=== PATIENT | female | born 1990 | race Two or more races ===

== ENCOUNTER 2017-03-08 21:02 | Observation (INO) | payer OTHER ==
[2017-03-08] MEDS ORDERED: Sodium Chloride 0.9% 1,000 ML IV STA (21:39)
[2017-03-08 22:02] LABS: BASO % 0.2 % (0.0-2.0); HEMATOCRIT 40.4 % (34.0-47.0); LYMPH # 0.3 K/uL (1.0-4.3); LYMPH % 4.2 % (20.0-40.0); MEAN CELL VOLUME 87.2 fl (81.0-99.0); MEAN CORPUSCULAR HEMOGLOBIN 29.5 pg (27.0-31.0); MEAN CORPUSCULAR HGB CONC 33.8 g/dL (33.0-37.0); MEAN PLATELET VOLUME 7.6 fl (7.2-11.7); MONO # 0.1 K/uL (0.0-0.8); MONO % 1.4 % (0.0-10.0); NEUT # 7.4 K/uL (1.8-7.0); NEUT % 94.2 % (50.0-75.0); NRBC % 0.1 % (0.0-0.0); PLATELET COUNT 225 K/uL (130-400); RED CELL DISTRIBUTION WIDTH 14.7 % (11.5-14.5); WHITE BLOOD COUNT 7.9 K/uL (4.8-10.8)
--- NOTE | 2017-03-08 22:46 | ED PDOC ---
HPI: Neurologic - General Time Seen by Provider: 03/08/17 21:19 Chief Complaint (Nursing): Headache Chief Complaint (Provider): tremors Source: patient - History of Present Illness Timing/Duration: increasing, waxing and waning (for about 4 weeks) Associated Symptoms: fatigue, muscle spasms, paresthesia, weakness Allergies/Adverse Reactions: Allergies No Known Allergies Allergy (Verified 03/08/17 21:09) Home Medications: Ambulatory Orders Albuterol Sulfate [Proair Hfa] 2 puff INH Q6 PRN 03/08/17 Azithromycin [Zithromax] 500 mg PO DAILY 03/08/17 Cetirizine HCl [Zyrtec] 10 mg PO DAILY 03/08/17 Norgestimate-Ethinyl Estradiol [Trinessa Tablet] 1 tab PO DAILY 03/08/17 Prednisone 50 mg PO DAILY 03/08/17 traZODone [Desyrel] 50 mg PO DAILY PRN 03/08/17 Sertraline [Zoloft] 50 mg PO DAILY tab 03/10/17 clonazePAM [Klonopin] 0.5 mg PO Q12 #0 tab 03/10/17 Additional Complaint(s): Severe tremors for about 4 weeks. Denies feeling anxious. She reports that she feels like she just can't control her arms and legs. For last 8 months, pt on medication for anxiety and depression. Initially was given celexa but after a week, started to get these similar symptoms of tremors , seen in [facility] ER and it was dc'd and pt prescribed short course xanax. In september, psychiatrist started pt on zoloft 25mg and ativan. In January she was on Zoloft 50mg and Ativan 0.5 In February pt was increased to Zoloft 100mg and ativan was discontinued. This is when symptoms started to appear again. Worsening until today and now presenting to ER. Denies alcohol or drugs. Past Medical History Reviewed: Historical Data, Nursing Documentation, Vital Signs Vital Signs: Last Vital Signs Temp 99.2 F 03/08/17 21:09 Pulse 115 H 03/08/17 21:09 Resp 16 03/08/17 21:09 BP 159/89 H 03/08/17 21:09 Pulse Ox 99 03/08/17 21:09 - Medical History PMH: Anxiety, Depression Denies: Diabetes (Family history), Hepatitis, HIV, HTN, Seizures, Sexually Transmitted Disease - Surgical History Other surgeries: Sinus surgery - Family History Family History: States: No Known Family Hx - Social History Current smoker - smoking cessation education provided: No Alcohol: Occasional Drugs: Denies - Immunization History Hx Tetanus Toxoid Vaccination: No Hx Influenza Vaccination: Yes Hx Pneumococcal Vaccination: No - Home Medications Home Medications: Ambulatory Orders Medication Instructions Recorded Albuterol Sulfate [Proair Hfa] 2 puff INH Q6 PRN 03/08/17 Azithromycin [Zithromax] 500 mg PO DAILY 03/08/17 Cetirizine HCl [Zyrtec] 10 mg PO DAILY 03/08/17 Norgestimate-Ethinyl Estradiol 1 tab PO DAILY 03/08/17 [Trinessa Tablet] Prednisone 50 mg PO DAILY 03/08/17 traZODone [Desyrel] 50 mg PO DAILY PRN 03/08/17 Sertraline [Zoloft] 50 mg PO DAILY tab 03/10/17 clonazePAM [Klonopin] 0.5 mg PO Q12 #0 tab 03/10/17 - Allergies Allergies/Adverse Reactions: Allergies Allergy/AdvReac Type Severity Reaction Status Date / Time No Known Allergies Allergy Verified 03/08/17 21:09 Review of Systems ROS Statement: Except As Marked, All Systems Reviewed And Found Negative (and as per HPI) Constitutional: Positive for: Sweats, Weakness Respiratory: Positive for: Shortness of Breath Musculoskeletal: Positive for: Neck Pain, Back Pain Neurological: Positive for: Incoordination, Dizziness. Negative for: Weakness, Numbness, Confusion Psych: Positive for: Anxiety, Depression. Negative for: Psychosis, Suicidal ideation, Withdrawal Physical Exam - Reviewed Nursing Documentation Reviewed: Yes Vital Signs Reviewed: Yes - Physical Exam Appears: Positive for: In Acute Distress (tearful) Head Exam: Positive for: ATRAUMATIC, NORMOCEPHALIC Skin: Positive for: Warm, Dry Eye Exam: Positive for: EOMI, PERRL, Conjunctival injection ENT: Negative for: Pharyngeal Erythema, Tonsillar Exudate Neck: Positive for: Painless ROM, Supple Cardiovascular/Chest: Positive for: Chest Non Tender, Tachycardia. Negative for : Murmur Respiratory: Positive for: Normal Breath Sounds. Negative for: Accessory Muscle Use, Respiratory Distress Gastrointestinal/Abdominal: Positive for: Soft. Negative for: Tenderness Back: Positive for: Normal Inspection. Negative for: Decreased ROM Extremity: Positive for: Normal ROM, Other (diffuse extremity tremor, no rigidity). Negative for: Pedal Edema, Calf Tenderness, Deformity Lymphatic: Negative for: Adenopathy Neurologic/Psych: Positive for: Alert, Oriented (x2), Mood/Affect (fearful and anxious). Negative for: Motor/Sensory Deficits, Aphasia, Facial Droop - Laboratory Results Result Diagrams: 03/09/17 06:50 03/09/17 06:50 - ECG ECG: Positive for: Interpreted By Me ECG Rhythm: Positive for: Normal QRS, Normal ST Segment, Sinus Rhythm O2 Sat by Pulse Oximetry: 99 Pulse Ox Interpretation: Normal - Progress ED Course And Treament: [facility] about concern for serotonin syndrome. Pt had some symptoms c/w serotonin syndrome. Recommends Ativan and supportive care. Reviewed ECG findings. Advised observation telemetry and for seizure development , mental status changes. 1045p Pt improved with Ativan. Disposition - Clinical Impression Clinical Impression: Anxiety Discussed With : Rajan Saul Doctor Will See Patient In The: Hospital Counseled Patient/Family Regarding: Studies Performed, Diagnosis - Disposition Disposition Time: 23:00 Condition: FAIR - Pt Status Changed To: Hospital Disposition Of: Observation - POA Present On Arrival: None
[2017-03-08 23:27] LABS: ALB/GLOB RATIO 1.7 (1.0-2.1); ALKALINE PHOSPHATASE 61 U/L (38-126); ALT/SGPT 31 U/L (9-52); AST/SGOT 24 U/L (14-36); BILIRUBIN,TOTAL 0.5 mg/dl (0.2-1.3); BLOOD UREA NITROGEN 8 mg/dl (7-17); CALCIUM 9.5 mg/dL (8.4-10.2); CARBON DIOXIDE 24 mmol/L (22-30); CHLORIDE 104 mmol/L (98-107); GFR AFRICAN-AMERICAN > 60; GLUCOSE,RANDOM 147 mg/dL (65-105); MAGNESIUM 1.7 MG/DL (1.6-2.3); PHOSPHOROUS 3.2 mg/dl (2.5-4.5); SODIUM 138 mmol/l (132-148); TOTAL PROTEIN 7.5 G/DL (6.3-8.2)
[2017-03-08 23:57] LABS: THYROID STIMULATING HORMONE 0.89 mIU/ML (0.46-4.68)
[2017-03-09 01:04] LABS: NEUTROPHIL 92 % (42-75); TOTAL CELLS COUNTED 100
[2017-03-09] MEDS ORDERED: Patient's Own Med (Albuterol Sulfate 2 PUFF) INH PRN (05:35)
[2017-03-09] MEDS ORDERED: Albuterol HFA 90 mcg/actuation (8 g) INH PRN (06:05)
[2017-03-09 07:03] LABS: HEMATOCRIT 38.5 % (34.0-47.0); MEAN CELL VOLUME 88.8 fl (81.0-99.0); MEAN CORPUSCULAR HEMOGLOBIN 29.3 pg (27.0-31.0); RED CELL DISTRIBUTION WIDTH 14.7 % (11.5-14.5); WHITE BLOOD COUNT 9.1 K/uL (4.8-10.8)
[2017-03-09 07:14] LABS: ALB/GLOB RATIO 1.6 (1.0-2.1); ALKALINE PHOSPHATASE 49 U/L (38-126); ALT/SGPT 30 U/L (9-52); AST/SGOT 16 U/L (14-36); BILIRUBIN,TOTAL 0.7 mg/dl (0.2-1.3); BLOOD UREA NITROGEN 7 mg/dl (7-17); CALCIUM 9.1 mg/dL (8.4-10.2); CARBON DIOXIDE 27 mmol/L (22-30); CHLORIDE 107 mmol/L (98-107); CHOLESTEROL 188 mg/dL (0-199); GFR AFRICAN-AMERICAN > 60; GLUCOSE,RANDOM 94 mg/dL (65-105); POTASSIUM 3.8 MMOL/L (3.6-5.0); SODIUM 141 mmol/l (132-148); TOTAL PROTEIN 6.6 G/DL (6.3-8.2)
[2017-03-09 07:35] LABS: T4 6.13 ug/dl (5.5-11.0)
[2017-03-09 07:48] LABS: THYROID STIMULATING HORMONE 3.77 mIU/ML (0.46-4.68)
[2017-03-09] MEDS ORDERED: NORGESTIMATE ETHINYL ESTRADIOL PO SCH (09:00)
--- NOTE | 2017-03-09 10:20 | CP.PCM.CON ---
History of Present Illness - History of Present Illness History of Present Illness: Psychiatry Consult called for evaluation of anxiety CC: "I think something is really wrong with me." HPI: 27 y/o F with PMHx of Anxiety and depression presenting to ED c/o of severe tremors, muscle twitching and muscle stiffness. As per patient in September, psychiatrist started her on zoloft 25mg and ativan, in January she was on Zoloft 50mg and Ativan 0.5, and in February pt was increased to Zoloft 100mg and ativan was discontinued. Patient reports that she continues to have anxiety, but came to the ER because she felt she was having more than a panic attack. Psychoeducation provided re: anxiety/depression/ panic attacks. Patient states she is not comfortable taking Zoloft anymore and does not want to take it. She does not want to take any other antidepressant until medical or neurological cause of her presentation is ruled out. We discussed starting Klonopin 0.5 mg PO Q12 hr for anxiety; r/b/se reviewed. No paranoia/marcos/hallucinations/ delusions. PPHx: +Outpatient psychiatrist (patient to make her own follow-up appointment). Denies h/o inpatient psychiatric admissions or suicide attempts. PMHx: Denies other medical hx than current presentation. ALL: NKDA SHx: Lives w/ friends, recently quit her job. +"social" drinking. Denies illicit drug use. FHx: Mother + Brother w/ depression, also on Zoloft MSE: A + O x 3, well groomed, no acute dress, calm/cooperative, speech normal, mood "anxiety", affect- broad/ tearful at times, thought process-linear/coherent , thought content- no delusions, no hallucinations, NO SI/HI, fair insight/ judgment, good impulse control. Impression: 27 yo female w/ h/o anxiety and depression, presented w/ tremors, muscle twitching and muscle stiffness, need to r/o medical or neurological cause of presentation; if ruled out, presentation may be secondary to generalized anxiety disorder w/ panic attacks. Patient not agreeable to continuing antidepressant at this time. -Start Klonopin 0.5 mg po Q12 hr (give prescription for 30 days upon discharge) -No acute inpatient psychiatric admission indicated at this time -Hold Zoloft as the patient does not feel comfortable taking this medication at this time; can also taper and stop to avoid withdrawal symptoms Past Patient History - Past Medical History & Family History Past Medical History?: Yes - Past Social History Smoking Status: Never Smoked - CARDIAC Hx Cardiac Disorders: No (Family history) - PULMONARY Hx Tuberculosis: No - NEUROLOGICAL Hx Seizures: No - HEENT Hx HEENT Problems: No - RENAL Hx Chronic Kidney Disease: No - ENDOCRINE/METABOLIC Hx Endocrine Disorders: No - HEMATOLOGICAL/ONCOLOGICAL Hx AIDS: No Hx Human Immunodeficiency Virus (HIV): No - INTEGUMENTARY Hx Dermatological Problems: No - MUSCULOSKELETAL/RHEUMATOLOGICAL Hx Musculoskeletal Disorders: No Hx Falls: No - GASTROINTESTINAL Hx Gastrointestinal Disorders: No - GENITOURINARY/GYNECOLOGICAL Hx Sexually Transmitted Disorders: Yes (HPV) - PSYCHIATRIC Hx Psychophysiologic Disorder: Yes Hx Anxiety: Yes Hx Depression: Yes Hx Substance Use: No - SURGICAL HISTORY Hx Surgeries: Yes Other/Comment: deviated septum - ANESTHESIA Hx Anesthesia: Yes Hx Anesthesia Reactions: No Meds Allergies/Adverse Reactions: Allergies Allergy/AdvReac Type Severity Reaction Status Date / Time No Known Allergies Allergy Verified 03/08/17 21:09 - Medications Medications: Current Medications Albuterol (Ventolin Hfa 90 Mcg/Actuation (8 G)) 2 puff INH RQ6 PRN PRN Reason: Shortness of Breath Azithromycin (Zithromax) 500 mg PO DAILY [facility] Home Med (Norgestimate-Ethinyl Estradiol [Trinessa Tablet]) 1 tab PO DAILY [facility] Loratadine (Claritin) 10 mg PO DAILY [facility] Lorazepam (Ativan) 0.5 mg IVP Q6 [facility] Last Admin: 03/09/17 03:57 Dose: 0.5 mg Prednisone (Prednisone Tab) 50 mg PO DAILY [facility] Sertraline HCl (Zoloft) 100 mg PO DAILY [facility] Trazodone HCl (Desyrel) 50 mg PO DAILY PRN PRN Reason: Insomnia Results - Vital Signs Recent Vital Signs: Last Vital Signs Temp 98.7 F 03/09/17 08:00 Pulse 48 L 03/09/17 08:00 Resp 20 03/09/17 08:00 BP 133/84 03/09/17 08:00 Pulse Ox 99 03/09/17 08:00 - Labs Result Diagrams: 03/09/17 06:50 03/09/17 06:50 Labs: Laboratory Results - last 24 hr 03/09/17 03/09/17 03/09/17 06:50 06:50 07:03 WBC 9.1 RBC 4.34 Hgb 12.7 Hct 38.5 MCV 88.8 MCH 29.3 MCHC 33.0 RDW 14.7 H Plt Count 223 Sodium 141 Potassium 3.8 Chloride 107 Carbon Dioxide 27 Anion Gap 11 BUN 7 Creatinine 0.7 Est GFR ( Amer) > 60 Est GFR (Non-Af Amer) > 60 Random Glucose 94 Calcium 9.1 Total Bilirubin 0.7 AST 16 ALT 30 Alkaline Phosphatase 49 Total Protein 6.6 Albumin 4.1 Globulin 2.5 Albumin/Globulin Ratio 1.6 Triglycerides 73 Cholesterol 188 LDL Cholesterol Direct 98 HDL Cholesterol 79 H Vitamin B12 366 Thyroxine (T4) 6.13 Total T3 0.867 L TSH 3rd Generation 3.77
--- NOTE | 2017-03-09 11:04 | CP.PCM.HP ---
<Leeann Antunez - Last Filed: 03/09/17 10:58> History of Present Illness - History of Present Illness History of Present Illness: 27 y/o F with PMHx of Anxiety and depression presenting to ED c/o of severe tremors, muscle twitching and muscle stiffness. As per patient in September, psychiatrist started her on zoloft 25mg and ativan, in January she was on Zoloft 50mg and Ativan 0.5, and in February pt was increased to Zoloft 100mg and ativan was discontinued. Denies chest pain, SOB, palpitations, abdominal pain, lightheadedness, N/V, diarrheas or other complains. Patient was seen and examined with attending Present on Admission - Present on Admission Any Indicators Present on Admission: No History of DVT/PE: No History of Uncontrolled Diabetes: No Urinary Catheter: No Decubitus Ulcer Present: No Review of Systems - Review of Systems All systems: reviewed and no additional remarkable complaints except (as per HPI ) Past Patient History - Past Medical History & Family History Past Medical History?: Yes - Past Social History Smoking Status: Never Smoked - CARDIAC Hx Cardiac Disorders: No (Family history) - PULMONARY Hx Tuberculosis: No - NEUROLOGICAL Hx Seizures: No - HEENT Hx HEENT Problems: No - RENAL Hx Chronic Kidney Disease: No - ENDOCRINE/METABOLIC Hx Endocrine Disorders: No - HEMATOLOGICAL/ONCOLOGICAL Hx AIDS: No Hx Human Immunodeficiency Virus (HIV): No - INTEGUMENTARY Hx Dermatological Problems: No - MUSCULOSKELETAL/RHEUMATOLOGICAL Hx Musculoskeletal Disorders: No Hx Falls: No - GASTROINTESTINAL Hx Gastrointestinal Disorders: No - GENITOURINARY/GYNECOLOGICAL Hx Sexually Transmitted Disorders: Yes (HPV) - PSYCHIATRIC Hx Psychophysiologic Disorder: Yes Hx Anxiety: Yes Hx Depression: Yes Hx Substance Use: No - SURGICAL HISTORY Hx Surgeries: Yes Other/Comment: deviated septum - ANESTHESIA Hx Anesthesia: Yes Hx Anesthesia Reactions: No Meds Allergies/Adverse Reactions: Allergies Allergy/AdvReac Type Severity Reaction Status Date / Time No Known Allergies Allergy Verified 03/08/17 21:09 Physical Exam - Constitutional Appears: No Acute Distress - Head Exam Head Exam: NORMAL INSPECTION - Eye Exam Eye Exam: Normal appearance - ENT Exam ENT Exam: Mucous Membranes Moist - Respiratory Exam Respiratory Exam: Clear to Auscultation Bilateral, NORMAL BREATHING PATTERN - Cardiovascular Exam Cardiovascular Exam: REGULAR RHYTHM, +S1, +S2 - GI/Abdominal Exam GI & Abdominal Exam: Normal Bowel Sounds, Soft. absent: Distended, Guarding, Rigid, Tenderness - Extremities Exam Extremities exam: Positive for: normal inspection. Negative for: calf tenderness, pedal edema - Neurological Exam Neurological exam: Alert, CN II-XII Intact, Normal Gait, Oriented x3 Additional comments: no evidence of tremors or muscle spasm noted - Psychiatric Exam Psychiatric exam: Normal Affect, Normal Mood - Skin Skin Exam: Dry, Intact, Normal Color Results - Vital Signs Recent Vital Signs: Last Vital Signs Temp 98.7 F 03/09/17 08:00 Pulse 48 L 03/09/17 08:00 Resp 20 03/09/17 08:00 BP 133/84 03/09/17 08:00 Pulse Ox 99 03/09/17 08:00 - Labs Result Diagrams: 03/09/17 06:50 03/09/17 06:50 Labs: Laboratory Results - last 24 hr 03/09/17 03/09/17 03/09/17 06:50 06:50 07:03 WBC 9.1 RBC 4.34 Hgb 12.7 Hct 38.5 MCV 88.8 MCH 29.3 MCHC 33.0 RDW 14.7 H Plt Count 223 Sodium 141 Potassium 3.8 Chloride 107 Carbon Dioxide 27 Anion Gap 11 BUN 7 Creatinine 0.7 Est GFR ( Amer) > 60 Est GFR (Non-Af Amer) > 60 Random Glucose 94 Calcium 9.1 Total Bilirubin 0.7 AST 16 ALT 30 Alkaline Phosphatase 49 Total Protein 6.6 Albumin 4.1 Globulin 2.5 Albumin/Globulin Ratio 1.6 Triglycerides 73 Cholesterol 188 LDL Cholesterol Direct 98 HDL Cholesterol 79 H Vitamin B12 366 Thyroxine (T4) 6.13 Total T3 0.867 L TSH 3rd Generation 3.77 Assessment & Plan - Assessment and Plan (Free Text) Assessment: 27 y/o F with PMHx of Anxiety and depression admitted with severe episode of tremors. Plan: Tremors admit to telemetry for observation of S/S of Serotonin syndrome -Continue child monitor c/w mental status monitor c/w supportive care -Psychiatry consult appreciated. F/u recommendations -Neurologist consult appreciated. F/u recommendations Depression Asymptomatic c/w home medications DVT prophylaxis ambulating SCDs while in bed - Date & Time Date: 03/09/17 Time: 07:50 <Rajan Saul - Last Filed: 03/17/17 12:49> Results - Vital Signs Recent Vital Signs: Last Vital Signs Temp 98.8 F 03/10/17 08:00 Pulse 67 03/10/17 08:00 Resp 18 03/10/17 08:00 BP 106/68 03/10/17 08:00 Pulse Ox 99 03/11/17 16:24 - Labs Result Diagrams: 03/09/17 06:50 03/09/17 06:50 Assessment & Plan - Assessment and Plan (Free Text) Assessment: Patient was personally seen and examined by me in rounds with residents. Available labs and diagnostic data reviewed. Case, patient's condition and management plan discussed with residents in rounds. Agree with resident's progress not. Plan: As ordered.
--- NOTE | 2017-03-09 12:40 | CARD ---
APPROVED REPORT EKG Measurement Heart [id number] TN [id number] [id number] <Conclusion> Normal sinus rhythm Possible Left atrial enlargement Borderline ECG
--- NOTE | 2017-03-09 12:48 | CP.PCM.CON ---
<Maddy Anthony - Last Filed: 03/09/17 12:58> History of Present Illness - History of Present Illness History of Present Illness: Neurolgy Consult: For Dr. Villanueva 27 YO F w/ PMH of anxiety, depression had presented to the ER w/ severe tremors , muscle twitching and muscle stiffness. In the ER pt improved after she was given Ativan. - Pt was diagnosed with depression in August of 2016 and was started with Celexa when she noticed having similiar symptoms with shaking and sweating at that time. She then changed physicians and went to Dr. Anaya which started the patient on Zoloft 25 mg , with which she was feeling a little better but was still having a hard time concentrating. Dosage was then increased to 50 mg, and in February she was increased to 100 mg. Since then she has been noticing episodes of sweating, with tremors in her upper extremity and lower extremity. denies any loss of consciousness or loss of bowl and bladder. - currently patient is denies anxiety or suicidal ideation. PMH: Anxiety, Depression, Allergy: None SHx: denies any illicit drug use, social drinking FHx: Mother and brother have depression controlled with Zoloft Psych: Dr. Ye Review of Systems - Review of Systems All systems: reviewed and no additional remarkable complaints except Past Patient History - Past Medical History & Family History Past Medical History?: Yes - Past Social History Smoking Status: Never Smoked - CARDIAC Hx Cardiac Disorders: No (Family history) - PULMONARY Hx Tuberculosis: No - NEUROLOGICAL Hx Seizures: No - HEENT Hx HEENT Problems: No - RENAL Hx Chronic Kidney Disease: No - ENDOCRINE/METABOLIC Hx Endocrine Disorders: No - HEMATOLOGICAL/ONCOLOGICAL Hx AIDS: No Hx Human Immunodeficiency Virus (HIV): No - INTEGUMENTARY Hx Dermatological Problems: No - MUSCULOSKELETAL/RHEUMATOLOGICAL Hx Musculoskeletal Disorders: No Hx Falls: No - GASTROINTESTINAL Hx Gastrointestinal Disorders: No - GENITOURINARY/GYNECOLOGICAL Hx Sexually Transmitted Disorders: Yes (HPV) - PSYCHIATRIC Hx Psychophysiologic Disorder: Yes Hx Anxiety: Yes Hx Depression: Yes Hx Substance Use: No - SURGICAL HISTORY Hx Surgeries: Yes Other/Comment: deviated septum - ANESTHESIA Hx Anesthesia: Yes Hx Anesthesia Reactions: No Meds Allergies/Adverse Reactions: Allergies Allergy/AdvReac Type Severity Reaction Status Date / Time No Known Allergies Allergy Verified 03/08/17 21:09 - Medications Medications: Current Medications Albuterol (Ventolin Hfa 90 Mcg/Actuation (8 G)) 2 puff INH RQ6 PRN PRN Reason: Shortness of Breath Azithromycin (Zithromax) 500 mg PO DAILY [facility] Last Admin: 03/09/17 10:21 Dose: 500 mg Clonazepam (Klonopin) 0.5 mg PO Q12 [facility] Home Med (Norgestimate-Ethinyl Estradiol [Trinessa Tablet]) 1 tab PO DAILY [facility] Loratadine (Claritin) 10 mg PO DAILY [facility] Last Admin: 03/09/17 10:21 Dose: 10 mg Prednisone (Prednisone Tab) 50 mg PO DAILY [facility] Last Admin: 03/09/17 10:21 Dose: 50 mg Sertraline HCl (Zoloft) 100 mg PO DAILY [facility] Last Admin: 03/09/17 10:25 Dose: Not Given Trazodone HCl (Desyrel) 50 mg PO DAILY PRN PRN Reason: Insomnia Last Admin: 03/09/17 10:21 Dose: 50 mg Physical Exam - Constitutional Appears: No Acute Distress - Head Exam Head Exam: ATRAUMATIC, NORMAL INSPECTION, NORMOCEPHALIC - Eye Exam Eye Exam: EOMI, Normal appearance - ENT Exam ENT Exam: Mucous Membranes Moist, Normal Exam - Neck Exam Neck exam: Positive for: Normal Inspection - Respiratory Exam Respiratory Exam: Clear to Auscultation Bilateral, NORMAL BREATHING PATTERN. absent: Chest Wall Tenderness, Rales, Wheezes - Cardiovascular Exam Cardiovascular Exam: REGULAR RHYTHM, +S1, +S2. absent: Tachycardia - Extremities Exam Extremities exam: Positive for: normal inspection. Negative for: calf tenderness - Neurological Exam Neurological exam: Alert, CN II-XII Intact, Oriented x3, Reflexes Normal Additional comments: -Motor 5/5 B/L upper and lower extremities. - DTR 2+ B/L upper and lower extremities -Sensation intact b/l upper and lower extremities - No tremors noted on out stretched hands - Motor and sensory intact - Psychiatric Exam Psychiatric exam: Anxious - Skin Skin Exam: Dry, Warm Results - Vital Signs Recent Vital Signs: Last Vital Signs Temp 98.2 F 03/09/17 12:00 Pulse 75 03/09/17 12:00 Resp 20 03/09/17 12:00 BP 116/73 03/09/17 12:00 Pulse Ox 99 03/09/17 12:00 - Labs Result Diagrams: 03/09/17 06:50 03/09/17 06:50 Labs: Laboratory Results - last 24 hr 03/09/17 03/09/17 03/09/17 06:50 06:50 07:03 WBC 9.1 RBC 4.34 Hgb 12.7 Hct 38.5 MCV 88.8 MCH 29.3 MCHC 33.0 RDW 14.7 H Plt Count 223 Sodium 141 Potassium 3.8 Chloride 107 Carbon Dioxide 27 Anion Gap 11 BUN 7 Creatinine 0.7 Est GFR ( Amer) > 60 Est GFR (Non-Af Amer) > 60 Random Glucose 94 Calcium 9.1 Total Bilirubin 0.7 AST 16 ALT 30 Alkaline Phosphatase 49 Total Protein 6.6 Albumin 4.1 Globulin 2.5 Albumin/Globulin Ratio 1.6 Triglycerides 73 Cholesterol 188 LDL Cholesterol Direct 98 HDL Cholesterol 79 H Vitamin B12 366 Thyroxine (T4) 6.13 Total T3 0.867 L TSH 3rd Generation 3.77 Assessment & Plan - Assessment and Plan (Free Text) Assessment: 1) Generalized anxiety disorder w/ intermittent panic attack - Possibly exacerbated by High dosage of zoloft, this is not likely serotonin syndrome - Agree with Psych recommendations. - Taper down Zoloft with 50mg x 3 days, 25mg x 3 days, and then stop. - Klonapin .5 mg Q12 on discharge - Follow up with Psych outpatient to make modifications to regime - If symptoms worsen or reoccur please return to ER. - Pt stable as per neurology <Yogesh Villanueva - Last Filed: 03/09/17 13:27> Meds - Medications Medications: Current Medications Albuterol (Ventolin Hfa 90 Mcg/Actuation (8 G)) 2 puff INH RQ6 PRN PRN Reason: Shortness of Breath Azithromycin (Zithromax) 500 mg PO DAILY [facility] Last Admin: 03/09/17 10:21 Dose: 500 mg Clonazepam (Klonopin) 0.5 mg PO Q12 [facility] Home Med (Norgestimate-Ethinyl Estradiol [Trinessa Tablet]) 1 tab PO DAILY [facility] Loratadine (Claritin) 10 mg PO DAILY [facility] Last Admin: 03/09/17 10:21 Dose: 10 mg Prednisone (Prednisone Tab) 50 mg PO DAILY [facility] Last Admin: 03/09/17 10:21 Dose: 50 mg Sertraline HCl (Zoloft) 50 mg PO DAILY [facility] Trazodone HCl (Desyrel) 50 mg PO DAILY PRN PRN Reason: Insomnia Last Admin: 03/09/17 10:21 Dose: 50 mg Results - Vital Signs Recent Vital Signs: Last Vital Signs Temp 98.2 F 03/09/17 12:00 Pulse 75 03/09/17 12:00 Resp 20 03/09/17 12:00 BP 116/73 03/09/17 12:00 Pulse Ox 99 03/09/17 12:00 - Labs Result Diagrams: 03/09/17 06:50 03/09/17 06:50 Labs: Laboratory Results - last 24 hr 03/09/17 03/09/17 03/09/17 06:50 06:50 07:03 WBC 9.1 RBC 4.34 Hgb 12.7 Hct 38.5 MCV 88.8 MCH 29.3 MCHC 33.0 RDW 14.7 H Plt Count 223 Sodium 141 Potassium 3.8 Chloride 107 Carbon Dioxide 27 Anion Gap 11 BUN 7 Creatinine 0.7 Est GFR ( Amer) > 60 Est GFR (Non-Af Amer) > 60 Random Glucose 94 Calcium 9.1 Total Bilirubin 0.7 AST 16 ALT 30 Alkaline Phosphatase 49 Total Protein 6.6 Albumin 4.1 Globulin 2.5 Albumin/Globulin Ratio 1.6 Triglycerides 73 Cholesterol 188 LDL Cholesterol Direct 98 HDL Cholesterol 79 H Vitamin B12 366 Thyroxine (T4) 6.13 Total T3 0.867 L TSH 3rd Generation 3.77 Attending/Attestation - Attestation I have personally seen and examined this patient.: Yes I have fully participated in the care of the patient.: Yes I have reviewed all pertinent clinical information: Yes
--- NOTE | 2017-03-09 13:25 | RAD ---
HISTORY: tachycardia COMPARISON: MK FINDINGS: LUNGS: No active pulmonary disease. PLEURA: No significant pleural effusion identified, no pneumothorax apparent. CARDIOVASCULAR: No radiographic findings to suggest acute or significant cardiovascular disease. OSSEOUS STRUCTURES: No significant abnormalities. VISUALIZED UPPER ABDOMEN: Normal. OTHER FINDINGS: None. IMPRESSION: No active disease.
--- NOTE | 2017-03-10 08:08 | CP.PCM.DIS ---
Provider - Provider Date of Admission: 03/10/17 03:34 Attending physician: Rajan Saul MD Time Spent in preparation of Discharge (in minutes): 30 Diagnosis - Discharge Diagnosis (1) MILY (generalized anxiety disorder) Status: Acute Priority: High Comment: Improved. F/U with PMD and Psychiatrist as outpatient (2) Depression Status: Chronic Comment: Asymptomatic. F/u with Psych Hospital Course - Lab Results Lab Results: Most Recent Lab Values WBC 9.1 K/uL (4.8-10.8) 03/09/17 06:50 RBC 4.34 Mil/uL (3.80-5.20) 03/09/17 06:50 Hgb 12.7 g/dL (12.0-16.0) 03/09/17 06:50 Hct 38.5 % (34.0-47.0) 03/09/17 06:50 MCV 88.8 fl (81.0-99.0) 03/09/17 06:50 MCH 29.3 pg (27.0-31.0) 03/09/17 06:50 MCHC 33.0 g/dL (33.0-37.0) 03/09/17 06:50 RDW 14.7 % (11.5-14.5) H 03/09/17 06:50 Plt Count 223 K/uL (130-400) 03/09/17 06:50 MPV 7.6 fl (7.2-11.7) 03/08/17 21:58 Neut % (Auto) 94.2 % (50.0-75.0) H 03/08/17 21:58 Lymph % (Auto) 4.2 % (20.0-40.0) L 03/08/17 21:58 [place] % (Auto) 1.4 % (0.0-10.0) 03/08/17 21:58 Eos % (Auto) 0.0 % (0.0-4.0) 03/08/17 21:58 Baso % (Auto) 0.2 % (0.0-2.0) 03/08/17 21:58 Neut # 7.4 K/uL (1.8-7.0) H 03/08/17 21:58 Lymph # 0.3 K/uL (1.0-4.3) L 03/08/17 21:58 [place] # 0.1 K/uL (0.0-0.8) 03/08/17 21:58 Eos # 0.0 K/uL (0.0-0.7) 03/08/17 21:58 Baso # 0.0 K/uL (0.0-0.2) 03/08/17 21:58 Neutrophils % (Manual) 92 % (42-75) H 03/08/17 21:58 Band Neutrophils % 2 % (0-2) 03/08/17 21:58 Lymphocytes % (Manual) 6 % (20-50) L 03/08/17 21:58 Monocytes % (Manual) 0 % (0-10) 03/08/17 21:58 Platelet Estimate Normal (NORMAL) 03/08/17 21:58 Anisocytosis (manual) Slight 03/08/17 21:58 Tear Drop Cells Slight 03/08/17 21:58 Ovalocytes Slight 03/08/17 21:58 Sodium 141 mmol/l (132-148) 03/09/17 06:50 Potassium 3.8 MMOL/L (3.6-5.0) 03/09/17 06:50 Chloride 107 mmol/L (98-107) 03/09/17 06:50 Carbon Dioxide 27 mmol/L (22-30) 03/09/17 06:50 Anion Gap 11 (10-20) 03/09/17 06:50 BUN 7 mg/dl (7-17) 03/09/17 06:50 Creatinine 0.7 mg/dL (0.7-1.2) 03/09/17 06:50 Est GFR ( Amer) > 60 03/09/17 06:50 Est GFR (Non-Af Amer) > 60 03/09/17 06:50 Random Glucose 94 mg/dL (65-105) 03/09/17 06:50 Calcium 9.1 mg/dL (8.4-10.2) 03/09/17 06:50 Phosphorus 3.2 mg/dl (2.5-4.5) 03/08/17 22:30 Magnesium 1.7 MG/DL (1.6-2.3) 03/08/17 22:30 Total Bilirubin 0.7 mg/dl (0.2-1.3) 03/09/17 06:50 AST 16 U/L (14-36) 03/09/17 06:50 ALT 30 U/L (9-52) 03/09/17 06:50 Alkaline Phosphatase 49 U/L (38-126) 03/09/17 06:50 Total Creatine Kinase 49 U/L (30-135) 03/08/17 22:30 Troponin I < 0.0120 ng/mL (0.00-0.120) 03/08/17 22:30 Total Protein 6.6 G/DL (6.3-8.2) 03/09/17 06:50 Albumin 4.1 g/dL (3.5-5.0) 03/09/17 06:50 Globulin 2.5 gm/dL (2.2-3.9) 03/09/17 06:50 Albumin/Globulin Ratio 1.6 (1.0-2.1) 03/09/17 06:50 Triglycerides 73 mg/DL (0-149) 03/09/17 06:50 Cholesterol 188 mg/dL (0-199) 03/09/17 06:50 LDL Cholesterol Direct 98 mg/dL (0-129) 03/09/17 06:50 HDL Cholesterol 79 MG/DL (30-70) H 03/09/17 06:50 Vitamin B12 366 pg/mL (239-931) 03/09/17 07:03 Thyroxine (T4) 6.13 ug/dl (5.5-11.0) 03/09/17 06:50 Total T3 0.867 nmol/L (1.49-2.60) L 03/09/17 06:50 TSH 3rd Generation 3.77 mIU/ML (0.46-4.68) 03/09/17 06:50 Urine Opiates Screen Negative (NEGATIVE) 03/08/17 22:07 Urine Methadone Screen Negative (NEGATIVE) 03/08/17 22:07 Ur Barbiturates Screen Negative (NEGATIVE) 03/08/17 22:07 Ur Phencyclidine Scrn Negative (NEGATIVE) 03/08/17 22:07 Ur Amphetamines Screen Negative (NEGATIVE) 03/08/17 22:07 U Benzodiazepines Scrn Negative (NEGATIVE) 03/08/17 22:07 U Oth Cocaine Metabols Negative (NEGATIVE) 03/08/17 22:07 U Cannabinoids Screen Positive (NEGATIVE) H 03/08/17 22:07 - Hospital Course Hospital Course: 27 y/o F with PMHx of Anxiety and depression admitted with severe episode of tremors. She was seen by psychiatris and neurology while in patient. Taper down Zoloft with 50mg x 3 days, then 25mg x 3 days, and then stop. - Klonapin .5 mg Q12 on discharge - Follow up with Psych outpatient to make modifications to regimen - If symptoms worsen or reoccur please return to ER. - Pt stable as per neurology - Date & Time of H&P Date of H&P: 03/10/17 Time of H&P: 08:15 Discharge Exam - Head Exam Head Exam: ATRAUMATIC, NORMAL INSPECTION, NORMOCEPHALIC Discharge Plan - Follow Up Plan Condition: GOOD Disposition: HOME/ ROUTINE Additional Instructions: Taper down Zoloft with 50 mg for 3 days, then 25mg for 3 days, and then stop. Klonopin 0.5 mg every 12 hours F/u with PMD, Dr. Saul in 1 week F/U with Psychiatrist in 1 week ER precautions given
[2017-03-10 08:27] VITALS: BP 106/68; PULSE 67; RESP 18; TEMP 98.8; O2SAT 99
== END 2017-03-10 11:00 | disposition home or self-care (01) ==
LOC: H.ER 21:02 → H.ERHOLD 23:43 → H.TEL 03-09 01:27 → OBSVTOIN 03-10 03:34 → INTOOBSV 03-10 03:34
PROVIDERS: ADMIT Internal Medicine; ATTEND Internal Medicine
DX: F41.1 Generalized anxiety disorder (principal); F32.9 Major depressive disorder, single episode, unspecified; R25.1 Tremor, unspecified
CPT/HCPCS: 36415; 71010; 80053; 80061; 80324; 80345; 80346; 80349; 80353; 80358; 80361; 81025; 82550; 82607; 83735; 83992; 84100; 84436; 84443; 84480; 84484; 85025; 85027; 93005; 96361; 96374; 96376; 99285; G0378; J2060; J7040

== ENCOUNTER 2018-12-23 21:07 | Emergency (ER) | payer OTHER ==
--- NOTE | 2018-12-23 22:42 | ED PDOC ---
HPI: General Adult Time Seen by Provider: 12/23/18 21:20 Chief Complaint (Nursing): Anxiety Chief Complaint (Provider): Anxiety, Vomiting, Diarrhea History Per: Patient History/Exam Limitations: no limitations Onset/Duration Of Symptoms: Hrs (since 1500 today) Current Symptoms Are (Timing): Still Present Additional Complaint(s): 28 year old female presents to the ED for evaluation of anxiety and a possible allergic reaction. Patient states that she woke up today around 1500 feeling throat tightness unrelieved by her inhaler and multiple episodes of vomiting and diarrhea which do not feel like a typical hangover; she reports that her "acid reflux send everything back up," even water, which has left her feeling dehydrated. She additionally notes she has been feeling anxious with intermittent numbness to right below her rib cage. Of note, she states she was recently diagnosed with a nut allergy, but does not think she was exposed to any, further denying any new exposures. PMD: Prompt Past Medical History Reviewed: Historical Data, Nursing Documentation, Vital Signs Vital Signs: Last Vital Signs Temp 99.0 F 12/23/18 21:20 Pulse 103 H 12/23/18 21:20 Resp 18 12/23/18 21:20 BP 158/81 H 12/23/18 21:20 Pulse Ox 100 12/23/18 21:20 Primary Care Provider: Procedure,Nonphys - Medical History PMH: Anxiety, Asthma, Depression Denies: Diabetes (Family history), Hepatitis, HIV, HTN, Chronic Kidney Disease, Seizures, Sexually Transmitted Disease - Surgical History Other surgeries: nasal surgery - Family History Family History: States: Diabetes - Social History Current smoker - smoking cessation education provided: No Alcohol: Social Drugs: Cannabis (daily) - Immunization History Hx Tetanus Toxoid Vaccination: No Hx Influenza Vaccination: Yes Hx Pneumococcal Vaccination: No - Home Medications Home Medications: Ambulatory Orders Medication Instructions Recorded Albuterol Sulfate [Proair Hfa] 2 puff INH Q6 PRN 03/08/17 Azithromycin [Zithromax] 500 mg PO DAILY 03/08/17 Cetirizine HCl [Zyrtec] 10 mg PO DAILY 03/08/17 Norgestimate-Ethinyl Estradiol 1 tab PO DAILY 03/08/17 [Trinessa Tablet] Prednisone 50 mg PO DAILY 03/08/17 traZODone [Desyrel] 50 mg PO DAILY PRN 03/08/17 Sertraline [Zoloft] 50 mg PO DAILY tab 03/10/17 clonazePAM [Klonopin] 0.5 mg PO Q12 #0 tab 03/10/17 - Allergies Allergies/Adverse Reactions: Allergies Allergy/AdvReac Type Severity Reaction Status Date / Time No Known Allergies Allergy Verified 03/08/17 21:09 Review of Systems ROS Statement: Except As Marked, All Systems Reviewed And Found Negative ENT: Positive for: Throat Swelling Gastrointestinal: Positive for: Vomiting, Diarrhea Neurological: Positive for: Numbness (intermittent to below rib cage) Psych: Positive for: Anxiety Physical Exam - Reviewed Nursing Documentation Reviewed: Yes Vital Signs Reviewed: Yes - Physical Exam Appears: Positive for: No Acute Distress Head Exam: Positive for: ATRAUMATIC, NORMAL INSPECTION, NORMOCEPHALIC Skin: Positive for: Normal Color (with some areas of sunburn to forehead and chest), Warm Eye Exam: Positive for: EOMI, Normal appearance, PERRL ENT: Positive for: Normal ENT Inspection. Negative for: Tonsillar Swelling Neck: Positive for: Normal, Painless ROM, Supple Cardiovascular/Chest: Positive for: Regular Rate, Rhythm Respiratory: Positive for: Normal Breath Sounds. Negative for: Accessory Muscle Use, Rales, Rhonchi, Wheezing, Respiratory Distress Gastrointestinal/Abdominal: Positive for: Normal Exam, Soft. Negative for: Tenderness Back: Positive for: Normal Inspection Extremity: Positive for: Normal ROM (all extremities) Neurological/Psych: Positive for: Awake, Alert, Oriented (x3) - Laboratory Results Result Diagrams: 12/23/18 23:04 12/23/18 23:04 - ECG O2 Sat by Pulse Oximetry: 100 (RA) Pulse Ox Interpretation: Normal Medical Decision Making Medical Decision Making: Time: 2248 Initial Impression: anxiety, r/o infectious process, dehydration, allergic reaction Initial Plan: --CMP --Lipase --CBC with differential --Normal saline IV --Zofran 4mg IV 00:05 pts throat is clear, no rashes, no swelling so unlikely allergic reaction labs reviewed no significant abnormality Patient is feeling anxious and takes Ativan at home. She is requesting ativan here, she was provided Ativan in the ED 01:53 Patient's lab presents positive for marijuana She is feeling better and offered crisis before being discharged She states this happened to her many times before Patient cleared by Dr. Stanley for anxiety explained and stressed the need for oupt psychiatry evaluation. Scribe Attestation: Documented by Ruthy Pritchard, acting as a scribe for Ilir Briones MD. Provider Scribe Attestation: All medical record entries made by the Scribe were at my direction and personally dictated by me. I have reviewed the chart and agree that the record accurately reflects my personal performance of the history, physical exam, medical decision making, and the department course for this patient. I have also personally directed, reviewed, and agree with the discharge instructions and disposition. Disposition - Clinical Impression Clinical Impression: Anxiety - Patient ED Disposition Is Patient to be Admitted: No Counseled Patient/Family Regarding: Studies Performed, Diagnosis, Need For Followup - Disposition Disposition: Routine/Home Disposition Time: 01:00 Condition: IMPROVED Additional Instructions: follow up with your primary doctor for psychiatry referral within one week return to the ED with any worsening or concerning symptoms [facility] [address] [place] [address] MONDAY-MONDAY: 9AM-8PM MONDAY AND MONDAY: 10AM-6PM [facility] [address] [phone] Instructions: Anxiety, Adult (DC) Forms: [employer] (Latvian)
[2018-12-23] MEDS ORDERED: Sodium Chloride 0.9% 1,000 ML IV STA (22:49)
[2018-12-23 23:13] LABS: BASO % 0.4 % (0.0-2.0); EOS % 0.1 % (0.0-4.0); HEMOGLOBIN 13.5 g/dL (12.0-16.0); LYMPH # 1.4 K/uL (1.0-4.3); LYMPH % 11.8 % (20.0-40.0); MEAN CELL VOLUME 89.3 fl (81.0-99.0); MEAN CORPUSCULAR HEMOGLOBIN 30.5 pg (27.0-31.0); MEAN CORPUSCULAR HGB CONC 34.2 g/dL (33.0-37.0); MEAN PLATELET VOLUME 7.6 fl (7.2-11.7); MONO # 0.9 K/uL (0.0-0.8); MONO % 7.2 % (0.0-10.0); NEUT # 9.6 K/uL (1.8-7.0); NEUT % 80.5 % (50.0-75.0); RBC 4.41 Mil/uL (3.80-5.20); RED CELL DISTRIBUTION WIDTH 13.2 % (11.5-14.5); WHITE BLOOD COUNT 11.9 K/uL (4.8-10.8)
[2018-12-23 23:24] LABS: ALB/GLOB RATIO 1.8 (1.0-2.1); ALBUMIN 4.6 g/dL (3.5-5.0); ALT/SGPT 24 U/L (9-52); AST/SGOT 28 U/L (14-36); BLOOD UREA NITROGEN 8 mg/dl (7-17); CALCIUM 9.1 mg/dL (8.4-10.2); GFR NON-AFRICAN AMERICAN > 60; LIPASE 44 U/L (23-300)
[2018-12-23] MEDS ORDERED: DiphenhydrAMINE 50 mg/ml Inj ONE (23:44)
[2018-12-23] MEDS ORDERED: Albuterol-Ipratrop 3 mg / 0.5 (3 ml) UD ONE (23:44)
[2018-12-23] MEDS ORDERED: DiphenhydrAMINE 50 mg/ml Inj IVP STA (23:56)
[2018-12-23] MEDS ORDERED: Albuterol-Ipratrop 3 mg / 0.5 (3 ml) UD INH STA (23:56)
[2018-12-24 00:38] LABS: SQUAMOUS EPITHIAL 4 /hpf (0-5); URINE BACTERIA RARE (<OCC); URINE BILIRUBIN NEGATIVE (NEGATIVE); URINE BLOOD SMALL (NEGATIVE); URINE CLARITY SLIGHTY-CLOUDY (Clear); URINE COLOR YELLOW (YELLOW); URINE GLUCOSE (UA) NEG (NEGATIVE); URINE LEUKOCYTE ESTERASE TRACE Leu/uL (Negative); URINE PROTEIN NEGATIVE (NEGATIVE); URINE UROBILINOGEN 0.2-1.0 mg/dL (0.2-1.0)
[2018-12-24 01:00] LABS: BARBITURATES, UR NEGATIVE (NEGATIVE); BENZODIAZEPINES, UR NEGATIVE (NEGATIVE); OPIATES, UR NEGATIVE (NEGATIVE); PHENCYCLIDINE, UR NEGATIVE (NEGATIVE)
[2018-12-24 06:11] VITALS: BP 130/76; PULSE 80; RESP 16; TEMP 98.1
[2018-12-25 02:58] VITALS: O2SAT 100
== END 2018-12-24 05:53 | disposition home or self-care (01) ==
LOC: H.ER 21:07
DX: F41.9 Anxiety disorder, unspecified (principal); Z86.59 Personal history of other mental and behavioral disorders; J45.909 Unspecified asthma, uncomplicated
CPT/HCPCS: 80053; 80320; 80324; 80345; 80346; 80349; 80353; 80358; 80361; 81003; 83690; 83992; 85025; 87086; 96374; 96375; 99283; J1200; J2060; J2405; J7030